=== PATIENT | female | born 1940 | race Two or more races ===

== ENCOUNTER 2023-03-02 18:43 | Emergency (ER) | payer OTHER ==
[~2023-03-02] VITALS: Ht 157.5 cm; Wt 59.9 kg
== END 2023-03-03 01:19 | disposition home or self-care (01) ==
LOC: ER 18:43
PROVIDERS: General Practice
DX: N83.209 Unspecified ovarian cyst, unspecified side (principal); I10 Essential (primary) hypertension; Z88.1 Allergy status to other antibiotic agents
CPT/HCPCS: 36415; 71045; 74177; 96372; 99284; J1885; Q9965